=== PATIENT | female | born 1960 | race Caucasian/White ===

== ENCOUNTER 2021-07-15 09:02 | Observation (INO) | payer BC ==
--- NOTE | 2021-06-04 10:47 | RAD REPORT ---
EXAM DESCRIPTION: RAD - Chest Pa And Lat (2 Views) - 06/04/2021 10:31 am CLINICAL HISTORY: Pre op, pending total knee replacement COMPARISON: None TECHNIQUE: Frontal and lateral views of the chest were obtained. FINDINGS: The lungs are clear. Pacemaker/defibrillator is in place. Cardiomegaly is present sternot maco wires in place presumed to be from CABG. Retrosternal soft tissue fullness is probably part of th e cardiomegaly. Upper lobe vasculature within normal limits. Acute failure or volume overload is not suspected. No pleural effusion or pneumothorax seen. No acute bony finding noted. No aortic abnorma lity. IMPRESSION: No acute lung parenchymal process. Cardiomegaly without acute failure or volume overload findings.
[2021-06-04 11:30] LABS: Absolute Lymphocytes (CBC) 2.3 K/uL (0.7-4.9); Hematocrit 43.3 % (36.0-45.0); Lymphocytes % 40.6 % (15.3-44.8); MPV 8.8 fL (7.6-11.3); RBC Red Blood Cell Count 4.76 M/uL (3.86-4.86)
[2021-06-04 11:33] LABS: Protime INR 2.34
[2021-06-04 12:01] LABS: Potassium 4.1 mmol/L (3.5-5.1)
[~2021-07-15 09:02] MED LIST: TRANEXAMIC ACID 1,000 MG in NA CHLORIDE 0.9% 50 ML IV ONE
[2021-07-15] MEDS ORDERED: CEFAZOLIN SODIUM 1 GM/VIAL ONE ×2 (09:22→12:22)
[2021-07-15] MEDS ORDERED: NA CHLORIDE 0.9% 1,000 ML ONE (09:23)
[2021-07-15 09:38] LABS: Protime INR 0.97
[2021-07-15] MEDS ORDERED: dexAMETHasone 10 MG/ML VIAL ONE ×2 (09:46→10:46)
[2021-07-15] MEDS ORDERED: LIDOCAINE 1% MPF 5 ML VIAL ONE (09:46)
[2021-07-15] MEDS ORDERED: BUPIVACAINE 0.25% PF 10 ML VIAL ONE (09:46)
[2021-07-15] MEDS ORDERED: FENTANYL CITR 100 MCG/2 ML ONE (09:47)
[2021-07-15] MEDS ORDERED: MIDAZOLAM HCL 2 MG/2 ML INJ ONE (09:47)
[2021-07-15] MEDS ORDERED: HYDROMORPHONE HCL 1 MG/ML INJ ONE (10:34)
[2021-07-15] MEDS ORDERED: KETAMINE HCL 500 MG/5 ML VIAL ONE (10:45)
[2021-07-15] MEDS ORDERED: propofoL 200 MG/20 ML VIAL IV ONE (10:45)
[2021-07-15] MEDS ORDERED: LIDOCAINE 2% MPF 5 ML VIAL ONE (10:46)
[2021-07-15] MEDS ORDERED: ONDANSETRON 4 MG/2 ML VIAL ONE (10:47)
[2021-07-15] MEDS ORDERED: KETOROLAC 30 MG/ML INJ ONE (10:47)
--- NOTE | 2021-07-15 13:33 | P.BOP ---
Preoperative diagnosis: left knee osteoarthritis Postoperative diagnosis: same Primary procedure: left total knee arthroplasty Acute Care Assistant: NONE,NONE Estimated blood loss: 30 cc Specimen: left knee bone remnants Findings: see dictation Anesthesia: General Complications: None Implants: Biomet Conchita Persona 4 CR femur, C tibia, 26 patella, 12 MC poly Fluids & blood products: per anesthesia record; TT: 73 mins @ 300 mmHg Transferred to: Recovery Room Condition: Good
[2021-07-15] MEDS ORDERED: DOCUSATE NA 100 MG CAP PO PRN (13:35)
[2021-07-15] MEDS ORDERED: MORPHINE 4 MG/ML SYR IV PRN (13:35)
[2021-07-15] MEDS ORDERED: ONDANSETRON 4 MG/2 ML VIAL IV PRN (13:35)
[2021-07-15] MEDS ORDERED: TRAMADOL HCL 50 MG TAB PO PRN (13:43)
[2021-07-15] MEDS ORDERED: ACETAMINOPHEN 500 MG TAB PO PRN (14:06)
[2021-07-15 14:12] LABS: Hematocrit 37.1 % (36.0-45.0)
--- NOTE | 2021-07-15 14:22 | RAD REPORT ---
EXAM DESCRIPTION: RAD - Knee Left 2 View - 07/15/2021 2:16 pm CLINICAL HISTORY: Post Op COMPARISON: No comparisons FINDINGS: A left total knee arthroplasty has been performed. Hardware is in expected location. No ab normal or unexpected bone, implant or soft tissue finding. Skin otis are noted. IMPRESSION: Postoperative left knee with no unexpected finding.
[2021-07-15 14:57] VITALS: BMI 34.0
[2021-07-15] MEDS ORDERED: PNEUMOCOCCAL VACCINE 0.5 ML IMVAC ONE (16:00)
[2021-07-15] MEDS: CEFAZOLIN 1 GM in NA CHLORIDE 0.9% 50 ML IVPB SCH (16:12)
[2021-07-15] MEDS: HYDROCODONE/APAP 7.5/325 MG TAB PO PRN (18:42)
--- NOTE | 2021-07-15 18:43 | P.CNS ---
Date of Consult: 07/15/21 Reason for Consult: Assistance with medical management Requesting Physician: Benoit Adame Chief Complaint: Status post left total knee arthroplasty History of Present Illness: Patient is a 61-year-old female came to the hospital for a left total knee arthroplasty. Patient has a history of coronary artery disease as well as DVTs. She has been on Lovenox and Coumadin. This has been discontinued for the surgery. Orthopedics is okay with restarting this. We will go ahead and continue with Coumadin but overlap with Lovenox until patient's INR gets therapeutic. Patient also with a history of diabetes. Resume home medications. Otherwise, patient doing well with no complaints. She will be admitted for observation. Allergies No Known Allergies Allergy (Verified 07/10/21 14:56) Home Medications: Acetaminophen [Tylenol Arthritis] 650 mg PO BEDTIME 06/04/21 Bempedoic Acid/Ezetimibe [Nexlizet 180-10 mg Tablet] 1 each PO BEDTIME 06/04/21 Carvedilol [Coreg] 3.125 mg PO BID 06/04/21 Metformin HCl 4 tab PO BEDTIME 06/04/21 Sacubitril/Valsartan [Entresto 24 mg-26 mg Tablet] 1 tab PO BID 06/04/21 Spironolactone [Aldactone] 12.5 mg PO DAILY 06/04/21 Vit C/E/Zn/Coppr/Lutein/Zeaxan [Preservision Areds 2 Softgel] 3 each PO DAILY 06/04/21 Warfarin Sodium [Coumadin] 5 mg PO DAILY 5 PM 06/04/21 - Past Medical/Surgical History Diabetic: Yes -: High Cholesterol -: Congenital HEart Defect -: Blood clots -: NIDDM -: CAD -: GA -: heart surgery age 8 months -: heart surgery age 12 years -: heart surgery age 19 years -: tubal ligation -: right knee meniscectomy -: February 28, 2018 pacemaker/defibrillator - Family History Mother Medical History: Diabetes, Other (see notes) Notes: macular degeneration, bilateral leg amputation Father Medical History: Other (see notes) Notes: PTSD - Social History Smoking Status: Former smoker Alcohol use: Yes CD- Drugs: No Caffeine use: Yes Place of Residence: Home Review of Systems 10-point ROS is otherwise unremarkable Physical Examination Temp Pulse Resp BP Pulse Ox 97.1 F 93 H 18 100/58 L 93 07/15/21 16:00 07/15/21 16:00 07/15/21 16:00 07/15/21 16:00 07/15/21 16:00 General: Alert, In no apparent distress HEENT: Atraumatic, PERRLA, Mucous membr. moist/pink, EOMI, Sclerae nonicteric Neck: Supple, 2+ carotid pulse no bruit, No LAD, Without JVD or thyroid abnormality Respiratory: Clear to auscultation bilaterally, Normal air movement Cardiovascular: Regular rate/rhythm, Normal S1 S2 Gastrointestinal: Normal bowel sounds, No tenderness Musculoskeletal: No tenderness Integumentary: No rashes Neurological: Normal gait, Normal speech, Normal tone, Normal affect Lymphatics: No axilla or inguinal lymphadenopathy Laboratory Data (last 24 hrs) 07/15/21 13:56: Hgb 12.4, Hct 37.1 07/15/21 09:16: PT 11.1, INR 0.97, APTT 32.5 - Problems (1) Status post total left knee replacement Current Visit: Yes Status: Acute (2) History of DVT (deep vein thrombosis) Current Visit: Yes Status: Acute (3) History of diabetes mellitus, type II Current Visit: Yes Status: Acute Conclusions/ Impression: Dominguez plan: 1. Monitor closely during the perioperative. 2. Continue with Coumadin and overlap with Lovenox 3. Monitor blood sugars before meals at bedtime 4. Mild sliding scale insulin 5. Monitor hemodynamics closely 6. Repeat labs and check INR in the morning 7. GI DVT prophylaxis Critical Care: No Time Spent Managing Pts care (In Minutes): 35
[2021-07-15] MEDS ORDERED: D50W 25 GM/50 ML SYRINGE IV PRN (20:28)
[2021-07-15] MEDS ORDERED: GLUCAGON 1 MG/VIAL IM PRN (20:28)
--- NOTE | 2021-07-15 20:42 | P.OP ---
Preoperative diagnosis: left knee osteoarthritis Postoperative diagnosis: same Primary procedure: left total knee arthroplasty Anesthesia: general Estimated blood loss: 30 cc Specimen: left knee bone remnants Findings: see dictation Operative Technique: Indication For Procedure: Lauren is a 61 year-old female presenting to my clinic with signs, symptoms and x-ray findings consistent with severe left knee osteoarthritis. I discussed with the patient at length risks and benefits associated with operative and nonoperative treatment. She had failed conservative treatment measures and had significant difficulties with ADLs secondary to her pain. We discussed operative treatment and elected to proceed with left total knee arthroplasty. She expressed understanding and elected to proceed with operative treatment. Description Of Procedure: After informed consent was obtained, the patient was identified in the preoperative holding area. The left lower extremity was marked. The patient was then taken to the PACU where he underwent a leftt lower extremity adductor canal block performed by Anesthesia. She was then taken to the operating room, transferred to the operating table in supine fashion, and placed under general anesthesia. The left lower extremity was then prepped and draped in usual sterile fashion. A time-out was initiated. The correct patient and procedure were confirmed and identified. The patient did receive her preoperative prophylactic antibiotics. The left lower extremity was then exsanguinated and tourniquet was inflated to 300 mmHg. Approximately 15 cm longitudinal incision was made centered over the anterior aspect of the left knee. Dissection was then taken to the extensor mechanism and a medial parapatellar arthrotomy was performed. The patella was everted and dislocated laterally and the knee was flexed in the fat pad. Medial lateral meniscus and ACL were all excised exposing the distal femur. Excess hypertrophic synovium was also excised within the suprapatellar pouch. The patient had a CT of her left knee preoperatively for surgical planning and creation of cutting blocks. The cutting block was then placed over the distal femur and pins were then placed. The distal femoral cutting block was then placed over the pins. Knee joint was then used to ensure proper depth cut and the distal femur was then cut. The chamfer cutting guide was then placed over the distal end of the femur. Anterior, posterior cuts as well as anterior and posterior chamfer cuts were then made again confirming proper depth of the cut using an Jp wing. Excess bone remnants were then sent to pathology for further evaluation. Next, attention was taken to the proximal tibia. A tibial jig and tibial cutting block was then placed on proximal aspect of the left tibia and locked into position. Pins were then placed and alignment guide was then used to confirm proper alignment of the cut and then coronal and sagittal planes. Once this was confirmed, the cutting jig was placed over the pins and the proximal tibia was cut. Sizing trays were then selected and size 10 mm spacer was used and there was good overall balance in flexion and extension. Next, the trial implants were then placed using the size 4 standard CR femur and a size C tibia with an 10 mm CR poly. There was overall good range of motion and with some mild laxity in flexion and extension. A size 12 MC poly was then trialed and there was improved motion and stability. The trial implants were then removed. This improved the overall stability of the knee and components. The wound was then irrigated thoroughly with normal saline and the knee was then injected with 30 cc of 0.5% Marcaine both in the posterior capsule and mediallateral gutters as well as quadriceps tendon and periosteum. The tibia was then punched. The femur was drilled. The cement was then prepared on the back table. Cement was then placed first on the tibial surface followed by size C tibia. Excess cement was removed with Barrow elevators. Size 4 standard CR femur was then placed on the distal femur after cement was placed on the distal femur. Excess cement was then removed and a size 12 mm MC trial poly was then placed. The knee was held in extension as the cement hardened. Undersurface of the patella was prepared debriding osteophytes using rongeurs as well as osteophytes.. Cement was placed on the undersurface of the patella after it was cut and a size 26 patella was placed. Once the cement was hardened, the knee was ranged, there was good overall stability both in flexion, extension and as well as stability with varus and valgus stresses. Trial poly was then removed and a size 12 mm MC poly was then placed and locked into position. The knee was then ranged again. There was good overall range of motion both for flexion and extension with good stability. The wound was then irrigated again thoroughly with normal saline using pulse lavage. Tourniquet was let down. Hemostasis was achieved using Bovie electrocautery. Extensor mechanism was then approximated using a #1 Vicryl both in interrupted and running fashion. The fascia was then approximated using 0 Vicryl. Subcutaneous tissue was approximated with a 2-0 Vicryl. Skin was approximated using otis. Sterile dressings were applied. The patient was awakened and transferred back in stable condition Complications: None Implants: Biomet Conchita Persona 4 femur, C tibia, 26 patella, 12 MC poly Fluids & blood products: per anesthesia record; TT: 73 mins @ 300 mHg Transferred to: Recovery Room Condition: Good
[2021-07-15] MEDS ORDERED: BEMPEDOIC ACID PO SCH (21:00)
[2021-07-15] MEDS ORDERED: EZETIMIBE PO SCH (21:00)
[2021-07-15] MEDS ORDERED: METFORMIN HCL 500 MG TAB PO SCH (21:00)
[2021-07-15] MEDS: carvediloL 3.125 MG TAB PO SCH (21:41)
[2021-07-15] MEDS: SACUBITRIL/VALSARTAN 24/26 MG TAB PO SCH (21:41)
[2021-07-15] MEDS: ENOXAPARIN 80 MG/0.8 ML SQ SCH (21:42)
[2021-07-15] MEDS: INSULIN -REGULAR HUMAN 50 UNIT/0.5 ML ML SQ SCH (21:42)
[2021-07-16] MEDS: CEFAZOLIN 1 GM in NA CHLORIDE 0.9% 50 ML IVPB SCH ×2 (01:09→08:25)
[2021-07-16] MEDS: HYDROCODONE/APAP 7.5/325 MG TAB PO PRN ×2 (01:52→12:24)
[2021-07-16 06:10] LABS: Absolute Lymphocytes (CBC) 0.9 K/uL (0.7-4.9); Hematocrit 34.5 % (36.0-45.0); Lymphocytes % 5.1 % (15.3-44.8); MPV 8.8 fL (7.6-11.3); RBC Red Blood Cell Count 3.89 M/uL (3.86-4.86)
[2021-07-16 06:20] LABS: Protime INR 1.1
[2021-07-16 06:30] LABS: Albumin 3.1 g/dL (3.4-5.0); Bilirubin Total 0.5 mg/dL (0.2-1.0); Magnesium 2.1 mg/dL (1.8-2.4); Potassium 4.4 mmol/L (3.5-5.1); Protein, Total 6.3 g/dL (6.4-8.2)
[2021-07-16 07:12] LABS: Blood Morphology Comment NOT SEEN (NOT SEEN); Platelet Estimate ADEQ
[2021-07-16] MEDS: INSULIN -REGULAR HUMAN 50 UNIT/0.5 ML ML SQ SCH ×2 (07:30→12:27)
[2021-07-16 08:08] VITALS: TEMP 97.6
[2021-07-16] MEDS: SACUBITRIL/VALSARTAN 24/26 MG TAB PO SCH (08:27)
[2021-07-16] MEDS: carvediloL 3.125 MG TAB PO SCH (08:28)
[2021-07-16] MEDS: ENOXAPARIN 80 MG/0.8 ML SQ SCH (08:28)
[2021-07-16] MEDS ORDERED: SPIRONOLACTONE 25 MG TABLET PO SCH (09:00)
[2021-07-16] MEDS ORDERED: HOME MED 1 EA UNK (Vit C/E/Zn/Coppr/Lutein/Zeaxan [Preservision Areds 2 Softgel] Capsule) PO SCH (09:00)
[2021-07-16] MEDS ORDERED: CELECOXIB 100 MG CAPSULE PO SCH (09:00)
[2021-07-16 11:17] VITALS: O2SAT 96
[2021-07-16 11:55] VITALS: BP 113/59
--- NOTE | 2021-07-16 13:06 | P.DS ---
Admission Date: 07/15/21 Discharge Date: 07/16/21 Disposition: DC HOME/HOME HEALTH CARE Discharge Condition: GOOD Reason for Admission: Status post left total knee arthroplasty Consultations: Dr. Portillo, Hospitalist Medicine Procedures: left total knee arthroplasty 07/15/2021 Brief History of Present Illness: Lauren is a 61-year-old female who underwent left total knee arthroplasty on July 15, 2021 without complication. Hospital Course: Lauren underwent left total knee arthroplasty on July 15 without complication. She was admitted to the floor in stable condition. Dr. Lopez was consulted to aid with medical management. She was started on therapeutic Lovenox secondary to her history of DVTs and prior cardiac history per recommendation of her c ardiologist. Physical therapy was consulted the patient mobilized safely. She was discharged on July 16 in stable condition with her vital signs stable. She will follow-up in 2 weeks for wound check and staple removal. She will resume anticoagulants per cardiology recommendations. Vital Signs/Physical Exam: Temp Pulse Resp BP Pulse Ox 97.6 F 88 17 113/59 L 95 07/16/21 11:54 07/16/21 11:54 07/16/21 12:24 07/16/21 11:54 07/16/21 11:54 Laboratory Data at Discharge: WBC 17.20 K/uL (4.3-10.9) H 07/16/21 05:28 Hgb 11.8 g/dL (12.0-15.0) L 07/16/21 05:28 Hct 34.5 % (36.0-45.0) L 07/16/21 05:28 Plt Count 285 K/uL (152-406) 07/16/21 05:28 PT 12.1 SECONDS (9.5-12.5) 07/16/21 05:28 INR 1.10 07/16/21 05:28 APTT 31.8 SECONDS (24.3-36.9) 07/16/21 05:28 Sodium 138 mmol/L (136-145) 07/16/21 05:28 Potassium 4.4 mmol/L (3.5-5.1) 07/16/21 05:28 BUN 13 mg/dL (7-18) 07/16/21 05:28 Creatinine 0.80 mg/dL (0.55-1.3) 07/16/21 05:28 Glucose 182 mg/dL (74-106) H 07/16/21 05:28 Magnesium 2.1 mg/dL (1.8-2.4) 07/16/21 05:28 Total Bilirubin 0.5 mg/dL (0.2-1.0) 07/16/21 05:28 AST 25 U/L (15-37) 07/16/21 05:28 ALT 35 U/L (12-78) 07/16/21 05:28 Alkaline Phosphatase 39 U/L (45-117) L 07/16/21 05:28 Home Medications: Acetaminophen [Tylenol Arthritis] 650 mg PO BEDTIME 06/04/21 Bempedoic Acid/Ezetimibe [Nexlizet 180-10 mg Tablet] 1 each PO BEDTIME 06/04/21 Carvedilol [Coreg] 3.125 mg PO BID 06/04/21 Metformin HCl 4 tab PO BEDTIME 06/04/21 Sacubitril/Valsartan [Entresto 24 mg-26 mg Tablet] 1 tab PO BID 06/04/21 Spironolactone [Aldactone*] 12.5 mg PO DAILY 06/04/21 Vit C/E/Zn/Coppr/Lutein/Zeaxan [Preservision Areds 2 Softgel] 3 each PO DAILY 06/04/21 Warfarin Sodium [Coumadin*] 5 mg PO DAILY 5 PM 06/04/21 Docusate [Colace Cap*] 200 mg PO DAILY PRN #30 cap 07/16/21 Enoxaparin Sodium [Lovenox 80 MG INJ*] 80 mg SQ Q12HR syr 07/16/21 Hydrocodone 7.5/APAP 325 [[place] 7.5/325 mg*] 1 tab PO Q6HP PRN #30 tab 07/16/21 New Medications: Hydrocodone 7.5/APAP 325 [[place] 7.5/325 mg*] 1 tab PO Q6HP PRN #30 tab PRN Reason: Pain Scale 5-7 (Moderate) Docusate [Colace Cap*] 200 mg PO DAILY PRN #30 cap PRN Reason: Constipation Physician Discharge Instructions: -DC IV and DC home -Follow-up with PCP in 1 to 2 weeks -Follow-up with Orthopedics in 1 to 2 weeks -Follow-up with Cardiology, Dr. Judge in [place], Tuesday07/20/2020 -Please call Dr. Portillo at [phone] if any questions regarding hospital stay -Please call nursing station at [phone] if any nursing or medication questions -Return to the emergency room if symptoms worsen Diet: AHA Activity: Fall precautions Followup: Benoit Adame MD [ACTIVE - CAN ADMIT] - 1-2 Weeks (Call to schedule appointment)
[2021-07-16] MEDS ORDERED: WARFARIN SODIUM 5 MG TAB PO SCH (17:00)
== END 2021-07-16 14:05 | disposition home health service (06) ==
LOC: OR 09:02 → 2ND 13:51
PROVIDERS: ADMIT Orthopaedic Surgery Sports Medicine; ATTEND Orthopaedic Surgery Sports Medicine
PROC: 0SRD069 Replacement of Left Knee Joint with Oxidized Zirconium on Polyethylene Synthetic Substitute, Cemented, Open Approach (ICD-10-PCS; principal; 2021-07-15 11:15)
DX: M17.12 Unilateral primary osteoarthritis, left knee (principal); E11.9 Type 2 diabetes mellitus without complications; I25.10 Atherosclerotic heart disease of native coronary artery without angina pectoris; E78.00 Pure hypercholesterolemia, unspecified; E78.5 Hyperlipidemia, unspecified; I25.2 Old myocardial infarction; Q24.9 Congenital malformation of heart, unspecified; F17.210 Nicotine dependence, cigarettes, uncomplicated; Z95.810 Presence of automatic (implantable) cardiac defibrillator; Z86.718 Personal history of other venous thrombosis and embolism; Z79.01 Long term (current) use of anticoagulants; Z79.899 Other long term (current) drug therapy; Z20.822 Contact with and (suspected) exposure to COVID-19; Z83.3 Family history of diabetes mellitus
CPT/HCPCS: 93005; 85025 ×2; 80048; 36415 ×3; 83735; 85610 ×3; 82947 ×6; 88304; 88311; 85730 ×3; 85018; 85014; 80053; 71046; 73560; 97110 ×2; 97116 ×2; 97139; 97161; 97530; 94010; 27447; U0002 ×2; J2704; J2250; J3010; J1100 ×2; J1170; J7030; J2405; J0690 ×5; G0379; G0378 ×2; 88305

== ENCOUNTER 2021-07-25 13:32 | Inpatient (IN) | payer BC ==
[2021-07-25] MEDS ORDERED: ONDANSETRON 4 MG/2 ML VIAL ONE (14:19)
[2021-07-25] MEDS ORDERED: NA CHLORIDE 0.9% 1,000 ML ONE (14:19)
[2021-07-25] MEDS ORDERED: FAMOTIDINE 20 MG/2 ML VIAL IV ONE (14:19)
[2021-07-25 14:38] LABS: Absolute Lymphocytes (CBC) 2.3 K/uL (0.7-4.9); Hematocrit 30.5 % (36.0-45.0); Lymphocytes % 17.7 % (15.3-44.8); MPV 9.3 fL (7.6-11.3); RBC Red Blood Cell Count 3.36 M/uL (3.86-4.86)
--- NOTE | 2021-07-25 14:38 | RAD REPORT ---
EXAM DESCRIPTION: RAD - Chest Single View - 07/25/2021 2:16 pm CLINICAL HISTORY: CHEST PAIN COMPARISON: Chest Pa And Lat (2 Views) dated 06/04/2021 FINDINGS: Lines: None. Lungs: No evidence of edema or pneumonia. Pleural: No significant pleural effusions or pneumothorax. Cardiac: Cardiomegaly. Sternotomy. Pacemaker. Bones: No acute fractures. Other: IMPRESSION: No acute cardiopulmonary disease.
[2021-07-25 14:51] LABS: Albumin 3.2 g/dL (3.4-5.0); Bilirubin Total 0.8 mg/dL (0.2-1.0); Potassium 4.2 mmol/L (3.5-5.1); Protein, Total 6.9 g/dL (6.4-8.2)
--- NOTE | 2021-07-25 15:04 | RAD REPORT ---
EXAM DESCRIPTION: CTAbdomen Pelvis W Contrast - 07/25/2021 2:44 pm CLINICAL HISTORY: ABD PAIN COMPARISON: No comparisons TECHNIQUE: CT of the abdomen and pelvis was performed with contrast. All CT scans are performed using dose optimization technique as appropriate and may include automated exposure control or mA/KV adjustment according to patient size. FINDINGS: Lower chest: Pacemaker. Cardiomegaly. Liver: No acute abnormality or suspicious lesions. Biliary: Contracted gallbladder with pericholecystic edema. Stomach: No significant focal abnormality. Duodenum: No significant focal abnormality. Pancreas: No significant abnormality. Spleen: No significant abnormality. Adrenal: 17 mm indeterminate left adrenal nodule. Kidney/ureter: No hydronephrosis. No renal calculi. Right renal cyst. Renal scarring. Retroperitoneum: No retroperitoneal adenopathy. Vascular: No aneurysm. Bowel: Normal appendix.. No bowel obstruction. Peritoneum: No ascites or free air. Small fat containing umbilical hernia . Bladder: Grossly unremarkable. Reproductive: 6.1 cm mid uterine mass. Bones: No acute fracture. Sternotomy. Other: n/a IMPRESSION: The gallbladder is contracted however there is significant pericholecystic inflammatory changes. Acute cholecystitis is within the differential. Underlying liver disease and/or pathology at the duodenum or pancreatic head can occasionally cause reactive inflammatory changes surround the ga llbladder. Left adrenal nodule measuring 17 millimeters which is indeterminate. Recommend nonemergent adrenal pr otocol CT or MRI in 6 months for further assessment. In the absence of known malignancy, these are al most certainly benign. Uterine mass, possibly a large fibroid. Correlate with patient's history. Nonemergent pelvic ultrasou nd could further evaluate if there is no known history of uterine fibroids.
[2021-07-25 16:16] LABS: Urine Blood Negative (Negative); Urine Glucose Negative (Negative); Urine Protein Negative (Negative); Urine Specific Gravity 1.015 (1.005-1.030); Urine pH 5.5 (5.0-7.0)
[2021-07-25] MEDS ORDERED: D5 0.45 NS 1,000 ML IV ONE (16:18)
[2021-07-25] MEDS ORDERED: PIPERACIL/TAZO 3.375 GM VIAL IV ONE (16:18)
[2021-07-25] MEDS ORDERED: NA CHLORIDE 0.9% 100 ML IV ONE (16:18)
--- NOTE | 2021-07-25 16:38 | ER ---
Nurse's Notes [facility] Name: Lauren Gregory Age: 61 yrs Sex: Female : 1960 Arrival Date: 07/25/2021 Time: 13:38 Bed 7 Private MD: Diagnosis: Acute cholecystitis Presentation: 07/25 13:42 Chief complaint: Patient states: Epigastric pain and low BP started today. Slight SOB. ll1 Denies cough/fever. Home VS: 86/49, HR 43. Knee replacement LLE 07/15/21. Coronavirus screen: Vaccine status: Patient reports receiving the 2nd dose of the covid vaccine. Client denies travel out of the [place] in the last 14 days. difficulty breathing, fatigue, shortness of breath, Client presents with at least one sign or symptom that may indicate coronavirus-19. Standard/surgical mask placed on the client. Ebola Screen: Patient denies travel to an Ebola-affected area in the 21 days before illness onset. Initial Sepsis Screen: Does the patient meet any 2 criteria? RR > 20 per min. No. Patient's initial sepsis screen is negative. Does the patient have a suspected source of infection?. Risk Assessment: Do you want to hurt yourself or someone else? Patient reports no desire to harm self or others. Onset of symptoms was July 25, 2021. 13:42 Method Of Arrival: Wheelchair ll1 13:42 Acuity: WARREN 2 ll1 Triage Assessment: 13:46 General: Appears ill, Behavior is cooperative, appropriate for age. Pain: Complains of ll1 pain in epigastric Quality of pain is described as aching. Neuro: No deficits noted. Cardiovascular: Reports chest pain, shortness of breath. Respiratory: Reports shortness of breath. GI: Reports upper abdominal pain. Historical: - Allergies: 13:40 No Known Allergies; ll1 - Home Meds: 14:11 hydrocodone-acetaminophen 7.5-325 mg Oral tab 1 tab every 6 hours [Active]; warfarin 5 ld1 mg Oral tab 1 tab once daily [Active]; Entresto 24-26 mg oral tab 1 tab 2 times per day [Active]; carvedilol 3.125 mg oral tab 1 tab 2 times per day [Active]; metformin 500 mg Oral tab 1 tab 2 times per day [Active]; spironolactone 25 mg Oral tab 1 tab once daily [Active]; Nexlizet 180-10 mg oral tab 1 tab once daily [Active]; - PMHx: 13:40 Diabetes mellitus; GERD; Hypertensive disorder; Myocardial infarction; ll1 - PSHx: 13:40 knee replacement; 3 open heart surgeries; pacemaker/defib; ll1 - Immunization history:: Client reports receiving the 2nd dose of the Covid vaccine. - Social history:: Smoking status: Patient/guardian denies using tobacco, the patient reports quitting approximately 3.5 years ago, Patient/guardian denies using alcohol, street drugs, The patient lives with family. - Family history:: not pertinent. Screenin:09 Abuse screen: Denies threats or abuse. Denies injuries from another. Nutritional ld1 screening: No deficits noted. Tuberculosis screening: No symptoms or risk factors identified. Fall Risk None identified. Assessment: 14:09 General: Appears in no apparent distress. comfortable, Behavior is calm, cooperative, ld1 appropriate for age. Pain: Complains of pain in epigastric area Pain does not radiate. Pain currently is 6 out of 10 on a pain scale. Quality of pain is described as pressure, Pain began 1 day ago. Is intermittent. Neuro: Level of Consciousness is awake, alert, obeys commands, Oriented to person, place, time, situation, Appropriate for age. Cardiovascular: Capillary refill < 3 seconds Patient's skin is warm and dry. Rhythm is sinus bradycardia. Respiratory: Airway is patent Respiratory effort is even, unlabored, Respiratory pattern is regular, symmetrical. GI: Abdomen is round non-distended, Reports upper abdominal pain. : No signs and/or symptoms were reported regarding the genitourinary system. EENT: No signs and/or symptoms were reported regarding the EENT system. Derm: No signs and/or symptoms reported regarding the dermatologic system. Musculoskeletal: No signs and/or symptoms reported regarding the musculoskeletal system. 15:27 Reassessment: Patient and/or family updated on plan of care and expected duration. Pain ld1 level reassessed. Patient is alert, oriented x 3, equal unlabored respirations, skin warm/dry/pink. 18:10 Reassessment: Patient appears in no apparent distress at this time. No changes from ld1 previously documented assessment. Patient and/or family updated on plan of care and expected duration. Pain level reassessed. Patient is alert, oriented x 3, equal unlabored respirations, skin warm/dry/pink. 19:57 Reassessment: Patient appears in no apparent distress at this time. No changes from ll3 previously documented assessment. Patient and/or family updated on plan of care and expected duration. Pain level reassessed. Patient is alert, oriented x 3, equal unlabored respirations, skin warm/dry/pink. Vital Signs: 13:42 BP 113 / 35; Pulse 40; Resp 24; Temp 97.4; Pulse Ox 100% on R/A; Weight 78.93 kg; ll1 Height 5 ft. 0 in. (152.40 cm); 14:09 BP 96 / 44; Pulse 40; Resp 21; Pulse Ox 97% on R/A; Pain 6/10; ld1 15:27 BP 98 / 54; Pulse 41; Resp 18; Pulse Ox 93% on R/A; ld1 16:53 BP 106 / 56; Pulse 40; Resp 18; Pulse Ox 98% on R/A; ld1 18:10 BP 102 / 75; Pulse 40; Resp 18; Pulse Ox 99% on R/A; ld1 19:56 BP 109 / 43; Pulse 40; Resp 16; Pulse Ox 97% on R/A; ll3 13:42 Body Mass Index 33.98 (78.93 kg, 152.40 cm) ll1 ED Course: 13:38 Patient arrived in ED. ll1 13:39 Arm band placed on Patient placed in an exam room, on a stretcher. ll1 13:46 Triage completed. ll1 13:53 EKG done, by ED staff. em1 13:55 Missed attempt(s): 20 gauge in right antecubital area. Bleeding controlled, band aid ll1 applied, catheter tip intact. 14:00 Inserted saline lock: 22 gauge in right forearm, using aseptic technique. Blood ll1 collected. 14:06 Ryan Morales MD is Attending Physician. ma2 14:09 Kristen Dorsey, URI is Primary Nurse. ld1 14:09 Patient has correct armband on for positive identification. Placed in gown. Bed in low ld1 position. Call light in reach. Side rails up X2. sawsmith on. Pulse ox on. NIBP on. Door closed. Noise minimized. Warm blanket given. 14:09 No provider procedures requiring assistance completed. ld1 14:16 XRAY Chest (1 view) In Process Unspecified. EDMS 14:44 CT Abd/Pelvis - IV Contrast Only In Process Unspecified. EDMS 16:38 Prince Light MD is Hospitalizing Provider. ma2 16:48 US Abdomen Limited In Process Unspecified. EDMS Administered Medications: 14:20 Drug: NS 0.9% 1000 ml Route: IV; Rate: 1 bolus; Site: right antecubital; ld1 14:20 Drug: Pepcid (famotidine) 20 mg Route: IVP; Site: right forearm; ld1 16:27 Follow up: Response: No adverse reaction ponce 14:21 Drug: Zofran (Ondansetron) 4 mg Route: IVP; Site: right forearm; ld1 16:27 Follow up: Response: No adverse reaction ponce 16:50 Drug: Zosyn (piperacillin-tazobactam) 3.375 grams Route: IVPB; Infused Over: 60 mins; ld1 Site: right forearm; 16:50 Drug: D5-1/2 NS 1000 ml Route: IV; Rate: 125 ml/hr; Site: right forearm; ld1 Outcome: 16:38 Decision to Hospitalize by Provider. ma2 21:13 Admitted to Tele room 406, with chart, Report called to URI Buckley lp1 21:13 Condition: stable 21:13 Instructed on the need for admit. 21:34 Patient left the ED. lp1 Signatures: Dispatcher [employer] EDMS Irwin Paris em1 Shea Liu, RN RN lp1 Ryan Morales MD MD ma2 Renée Frausto RN RN 1 Kristen Dorsey RN RN ld1 Gaby Vickers RN RN 3 Yumiko Slade RN RN ponce Corrections: (The following items were deleted from the chart) 13:42 13:40 PMHx: heart attack; ll1 ll1 13:47 13:42 Initial Sepsis Screen: Does the patient meet any 2 criteria? No. Patient's ll1 initial sepsis screen is negative. Does the patient have a suspected source of infection? Yes: Acute abdominal pain ll1 13:51 13:42 Chief complaint: Patient states: Epigastric pain and low BP started today. Slight ll1 SOB. Denies cough/fever. Home VS: 86/49, HR 43. ll1
--- NOTE | 2021-07-25 16:38 | EDPHYS ---
Physician Documentation [facility] Name: Lauren Gregory Age: 61 yrs Sex: Female : 1960 Arrival Date: 07/25/2021 Time: 13:38 Bed 7 Private MD: ED Physician Ryan Morales HPI: 07/25 14:33 This 61 yrs old Female presents to ER via Wheelchair with complaints of Epigastric Pain.ma2 14:33 The patient presents with abdominal pain. Associated signs and symptoms: Pertinent ma2 negatives: anorexia, chest pain, constipation, diarrhea, fever, hematuria, shortness of breath, vaginal discharge, vomiting. Severity of pain: At its worst the pain was mild in the emergency department the pain is unchanged. The patient has not experienced similar symptoms in the past. Historical: - Allergies: 13:40 No Known Allergies; ll1 - Home Meds: 14:11 hydrocodone-acetaminophen 7.5-325 mg Oral tab 1 tab every 6 hours [Active]; warfarin 5 ld1 mg Oral tab 1 tab once daily [Active]; Entresto 24-26 mg oral tab 1 tab 2 times per day [Active]; carvedilol 3.125 mg oral tab 1 tab 2 times per day [Active]; metformin 500 mg Oral tab 1 tab 2 times per day [Active]; spironolactone 25 mg Oral tab 1 tab once daily [Active]; Nexlizet 180-10 mg oral tab 1 tab once daily [Active]; - PMHx: 13:40 Diabetes mellitus; GERD; Hypertensive disorder; Myocardial infarction; ll1 - PSHx: 13:40 knee replacement; 3 open heart surgeries; pacemaker/defib; ll1 - Immunization history:: Client reports receiving the 2nd dose of the Covid vaccine. - Social history:: Smoking status: Patient/guardian denies using tobacco, the patient reports quitting approximately 3.5 years ago, Patient/guardian denies using alcohol, street drugs, The patient lives with family. - Family history:: not pertinent. ROS: 14:33 Constitutional: Negative for fever, chills, and weight loss. ma2 14:33 All other systems are negative. Exam: 14:33 Constitutional: This is a well developed, well nourished patient who is awake, alert, ma2 and in no acute distress. Head/Face: Normocephalic, atraumatic. Eyes: Pupils equal round and reactive to light, extra-ocular motions intact. Lids and lashes normal. Conjunctiva and sclera are non-icteric and not injected. Cornea within normal limits. Periorbital areas with no swelling, redness, or edema. ENT: Nares patent. No nasal discharge, no septal abnormalities noted. Tympanic membranes are normal and external auditory canals are clear. Oropharynx with no redness, swelling, or masses, exudates, or evidence of obstruction, uvula midline. Mucous membranes moist. Neck: Trachea midline, no thyromegaly or masses palpated, and no cervical lymphadenopathy. Supple, full range of motion without nuchal rigidity, or vertebral point tenderness. No Meningismus. Chest/axilla: Normal chest wall appearance and motion. Nontender with no deformity. No lesions are appreciated. Cardiovascular: Regular rate and rhythm with a normal S1 and S2. No gallops, murmurs, or rubs. Normal PMI, no JVD. No pulse deficits. Respiratory: Lungs have equal breath sounds bilaterally, clear to auscultation and percussion. No rales, rhonchi or wheezes noted. No increased work of breathing, no retractions or nasal flaring. Abdomen/GI: Soft, non-tender, with normal bowel sounds. No distension or tympany. No guarding or rebound. No evidence of tenderness throughout. Back: No spinal tenderness. No costovertebral tenderness. Full range of motion. Skin: Warm, dry with normal turgor. Normal color with no rashes, no lesions, and no evidence of cellulitis. MS/ Extremity: Pulses equal, no cyanosis. Neurovascular intact. Full, normal range of motion. Neuro: Awake and alert, GCS 15, oriented to person, place, time, and situation. Cranial nerves II-XII grossly intact. Motor strength 5/5 in all extremities. Sensory grossly intact. Cerebellar exam normal. Normal gait. Vital Signs: 13:42 BP 113 / 35; Pulse 40; Resp 24; Temp 97.4; Pulse Ox 100% on R/A; Weight 78.93 kg; ll1 Height 5 ft. 0 in. (152.40 cm); 14:09 BP 96 / 44; Pulse 40; Resp 21; Pulse Ox 97% on R/A; Pain 6/10; ld1 15:27 BP 98 / 54; Pulse 41; Resp 18; Pulse Ox 93% on R/A; ld1 16:53 BP 106 / 56; Pulse 40; Resp 18; Pulse Ox 98% on R/A; ld1 18:10 BP 102 / 75; Pulse 40; Resp 18; Pulse Ox 99% on R/A; ld1 19:56 BP 109 / 43; Pulse 40; Resp 16; Pulse Ox 97% on R/A; ll3 13:42 Body Mass Index 33.98 (78.93 kg, 152.40 cm) ll1 MDM: 14:07 Patient medically screened. ma2 16:36 Differential diagnosis: Cholelithiasis, gastritis, gastroesophageal reflux disease, ma2 pancreatitis. Data reviewed: vital signs, nurses notes. Counseling: I had a detailed discussion with the patient and/or guardian regarding: the historical points, exam findings, and any diagnostic results supporting the discharge/admit diagnosis, the presence of at least one elevated blood pressure reading (>120/80) during this emergency department visit, the need for outpatient follow up. Response to treatment: There is no appreciated change of the patient's symptoms at this time. ED course: Ultrasound shows CT scan shows acute cholecystitis, ultrasound is pending. White count 13,000, I discussed this with Dr. Lira. Recommend continue Zosyn n.p.o. midnight. Will admit to hospitalist discussed with Dr. Taveras. 07/25 13:49 Order name: CBC with Diff; Complete Time: 15:43 [facility] 07/25 13:49 Order name: Troponin HS; Complete Time: 15:43 [facility] 07/25 14:08 Order name: CMP; Complete Time: 15:43 [facility] 07/25 14:08 Order name: Lipase; Complete Time: 15:43 [facility] 07/25 16:16 Order name: Urine Dipstick-Ancillary; Complete Time: 16:19 EDMS 07/25 13:49 Order name: XRAY Chest (1 view); Complete Time: 15:43 [facility] 07/25 14:08 Order name: CT Abd/Pelvis - IV Contrast Only; Complete Time: 15:43 tx2 07/25 15:44 Order name: US Abdomen Limited; Complete Time: 17:59 [facility] 07/25 16:53 Order name: Lactate; Complete Time: 17:59 EDMS 07/25 17:08 Order name: SARS-COV-2 RT PCR (Document "Date of Onset" if Symptomatic) eb 07/25 13:49 Order name: EKG; Complete Time: 13:50 [facility] 07/25 13:49 Order name: Cardiac monitoring; Complete Time: 13:53 [facility] 07/25 13:49 Order name: EKG - Nurse/Tech; Complete Time: 13:53 [facility] 07/25 13:49 Order name: IV Saline Lock; Complete Time: 14:14 [facility] 07/25 13:49 Order name: Labs collected and sent; Complete Time: 14:14 [facility] 07/25 13:49 Order name: O2 Per Protocol; Complete Time: 13:53 [facility] 07/25 13:49 Order name: O2 Sat Monitoring; Complete Time: 13:53 [facility] 07/25 14:08 Order name: Urine Dipstick-Ancillary (obtain specimen); Complete Time: 16:16 tx2 07/25 15:58 Order name: NPO; Complete Time: 16:12 ma2 Administered Medications: 14:20 Drug: NS 0.9% 1000 ml Route: IV; Rate: 1 bolus; Site: right antecubital; ld1 14:20 Drug: Pepcid (famotidine) 20 mg Route: IVP; Site: right forearm; ld1 16:27 Follow up: Response: No adverse reaction ponce 14:21 Drug: Zofran (Ondansetron) 4 mg Route: IVP; Site: right forearm; ld1 16:27 Follow up: Response: No adverse reaction ponce 16:50 Drug: Zosyn (piperacillin-tazobactam) 3.375 grams Route: IVPB; Infused Over: 60 mins; ld1 Site: right forearm; 16:50 Drug: D5-1/2 NS 1000 ml Route: IV; Rate: 125 ml/hr; Site: right forearm; ld1 Disposition Summary: 07/25/21 16:38 Hospitalization Ordered Hospitalization Status: Inpatient Admission tx2 Provider: Prince mesha Light Location: Telemetry/MedSurg (Inpatient) ma2 Condition: Stable ma2 Problem: new ma2 Symptoms: are unchanged tx2 Bed/Room Type: Standard [facility] Room Assignment: 406(07/25/21 20:13) cg Diagnosis - Acute cholecystitis ma2 Forms: - Medication Reconciliation Form ma2 - SBAR form ma2 Signatures: Dispatcher [employer] EDMS Abelino Wang, POPCORN VENDOR-C POPCORN VENDOR-Cla1 Mercedes Barrera RN RN Ryan Morales MD MD ma2 Renée Frausto RN RN ll1 Kristen Dorsey RN RN 1 Yumiko Slade RN Corrections: (The following items were deleted from the chart) 13:42 13:40 PMHx: heart attack; ll1 ll1 14:24 13:50 BASIC METABOLIC PANEL+C.LAB.BRZ ordered. EDMS EDMS 20:13 16:38 [facility] [place]
--- NOTE | 2021-07-25 16:54 | P.HP ---
Certification for Inpatient Patient admitted to: Inpatient With expected LOS: >2 Midnights Practitioner: I am a practitioner with admitting privileges, knowledge of patient current condition, hospital course, and medical plan of care. Services: Services provided to patient in accordance with Admission requirements found in Title 42 Section 412.3 of the Code of Federal Regulations Patient History Date of Service: 07/25/21 Reason for admission: chest/epigrastric pain History of Present Illness: Patient is a 61-year-old female with a past medical history of hypertension, congestive heart failure, type 2 diabetes mellitus and chronic bradycardia. She currently has AICD in place. She also has a history of ventricular thrombus for which chronically anticoagulated with warfarin. She presented to the ER complaining of post malaise. Her symptoms started 3 days ago after patient started feeling clammy. Her heart rate was 38 at the time. The patient postpone her presentation until today. She developed a sudden onset of upper epigastric/subxiphoid pain. It is nonradiating. She recently had a left total knee arthroplasty on 07/22. Her warfarin was switched to Lovenox perioperatively. It is unclear whether she remain compliant on this. is unsure about this. She arrived in the ER bradycardic with heart rate in the mid 40s. She had a CT abdomen and pelvis which was suggestive of cholecystitis. WBC was 13. Surgery was consulted by ER for cholecystectomy. Lactic acid ordered. I have also ordered a pacemaker interrogation. She is mildly hypotensive with SBP in the low 100s. She received 2 L of IV fluids and 1 dose of zosyn. Allergies No Known Allergies Allergy (Verified 07/10/21 14:56) Home Medications: Acetaminophen [Tylenol Arthritis] 650 mg PO BEDTIME 06/04/21 Bempedoic Acid/Ezetimibe [Nexlizet 180-10 mg Tablet] 1 each PO BEDTIME 06/04/21 Carvedilol [Coreg] 3.125 mg PO BID 06/04/21 Metformin HCl 4 tab PO BEDTIME 06/04/21 Sacubitril/Valsartan [Entresto 24 mg-26 mg Tablet] 1 tab PO BID 06/04/21 Spironolactone [Aldactone*] 12.5 mg PO DAILY 06/04/21 Vit C/E/Zn/Coppr/Lutein/Zeaxan [Preservision Areds 2 Softgel] 3 each PO DAILY 06/04/21 Warfarin Sodium [Coumadin*] 5 mg PO DAILY 5 PM 06/04/21 Docusate [Colace Cap*] 200 mg PO DAILY PRN #30 cap 07/16/21 Enoxaparin Sodium [Lovenox 80 MG INJ*] 80 mg SQ Q12HR syr 07/16/21 Hydrocodone 7.5/APAP 325 [[place] 7.5/325 mg*] 1 tab PO Q6HP PRN #30 tab 07/16/21 - Past Medical/Surgical History Diabetic: Yes -: High Cholesterol -: Congenital HEart Defect -: Blood clots -: NIDDM -: CAD -: [place] -: heart surgery age 8 months -: heart surgery age 12 years -: heart surgery age 19 years -: tubal ligation -: right knee meniscectomy -: February 28, 2018 pacemaker/defibrillator - Family History Mother -: Diabetes, Other (see notes) Notes: macular degeneration, bilateral leg amputation Father -: Other (see notes) Notes: PTSD - Social History Alcohol use: Yes CD- Drugs: No Caffeine use: Yes Physical Examination - Physical Exam General: In no apparent distress, Cooperative, Obese, Other (lethargic) HEENT: Atraumatic, Normocephalic Respiratory: Normal air movement Cardiovascular: Normal S1 S2, Other (bradycardic), Edema Gastrointestinal: Soft and benign, Non-distended, Tenderness (Epigastric tenderness) Musculoskeletal: No clubbing, No swelling, No contractures, Other (s/p L TKA) Neurological: Normal speech, Normal affect - Studies Laboratory Data (last 24 hrs) 07/25/21 14:00: Sodium 137, Potassium 4.2, BUN 22 H, Creatinine 0.98, Glucose 240 H, Total Bilirubin 0.8, AST 23, ALT 34, Alkaline Phosphatase 54, Lipase 73 07/25/21 14:00: WBC 13.10 H D, Hgb 10.3 L, Hct 30.5 L, Plt Count 383 D 07/25/21 14:00: Sodium Cancelled, Potassium Cancelled, BUN Cancelled, Creatinine Cancelled, Glucose Cancelled Assessment and Plan - Problems (Diagnosis) (1) Sepsis Current Visit: Yes Status: Acute (2) Acute cholecystitis Current Visit: Yes Status: Acute (3) History of DVT (deep vein thrombosis) Current Visit: No Status: Acute (4) History of diabetes mellitus, type II Current Visit: No Status: Acute (5) Status post total left knee replacement Current Visit: No Status: Acute (6) Bradycardia Current Visit: Yes Status: Acute - Advance Directives Does patient have a Living Will: No Does patient have a Durable POA for Healthcare: No Physician Review Additional Text: Assessment Patient is a 61 year old female with obesity, type II DM, CHF. She is currently being admitted with sepsis after seh presented with upper epigastric pain. Abdominal imaging is concerning for acute cholecysitis. She is also bradycardic despite having a pacemaker in place. Her first troponin is negative. She received 2L in the ER for hypotension and a dose of Zosyn. Acute cholecystitis Symptomatic bradycardia/hypotension VTE CHF Type II diabetes mellitus PLAN: Admit inpatient with telemetry Continue zosyn and follow blood cx NPO after midnight for cholecystectomy. Surgery consulted by ER Follow up lactic acid Check coag panel Pacemaker interogation for bradycardia. TTE ordered Cardiology consulted Insulin sliding scale DVT/GI ppx
--- NOTE | 2021-07-25 17:12 | RAD REPORT ---
EXAM DESCRIPTION: US - Abdomen Exam Limited - 07/25/2021 4:47 pm CLINICAL HISTORY: ABD PAIN COMPARISON: Abdomen Pelvis W Contrast dated 07/25/2021 FINDINGS: The gallbladder is contracted. Wall is thickened measuring [address] one near the gallbladder neck. The common bile duct is normal in caliber measuring 2 millimeters. Neg ative sonographic Lopez's sign. No pericholecystic fluid. IMPRESSION: No conclusive findings to suggest acute cholecystitis. The sonographic Lopez sign is ne gative. Possible gallstone near the neck but lack of gallbladder dilatation would make calculous chol ecystitis unlikely. The common bile duct is normal in caliber.
[2021-07-25] MEDS ORDERED: SODIUM CHLORIDE 0.9% 10ML INJ IV PRN (21:09)
[2021-07-25] MEDS ORDERED: D50W 25 GM/50 ML SYRINGE IV PRN (21:09)
[2021-07-25] MEDS ORDERED: GLUCAGON 1 MG/VIAL IM PRN (21:09)
[2021-07-25 21:50] LABS: Protime INR 1.13
[2021-07-25] MEDS: D5 0.45 NS 1,000 ML IV SCH (23:00)
--- NOTE | 2021-07-25 23:17 | P.CNS ---
Date of Consult: 07/25/21 PC: This 61-year-old female presented to the emergency room with severe right upper quadrant abdominal pain for diagnosis and treatment. HPC: Patient has been having intermittent bouts of right upper quadrant abdominal pain over the both in occurrence and strength. She recently had left knee surgery. She noticed about 2 days ago that she started having right upper quadrant abdominal pain. It intensified to the point that this evening she could no longer stand and came to the hospital for diagnosis and treatment. PSHx: Recent knee surgery PMHx: Hypertension, had a recent cardiac work-up and stress test prior to her knee surgery 2 weeks ago. Social Hx: No known allergies Sys R: No cough, wheeze, shortness of breath. No chest pain or palpitations. Denies any urinary complaints O/E: Awake alert vital signs are stable HEENT: Nonicteric Chest: Air entry equal bilaterally Abd: Mild right upper quadrant tenderness [place]: Intact Data: CT scan demonstrates pericholecystic stranding, ultrasound shows possible's gallstone Impression: Acute on chronic cholecystitis with cholelithiasis Plan: I will take the patient in the operating room tomorrow. The risks of this procedure have been discussed. I explained to her that we will do a laparoscopic cholecystectomy with a cholangiogram. There is a possibility that she may have to undergo an open procedure. The risks of injury to bile ducts blood vessels and intestines were explained. The fact we are going to do a cholangiogram which may lead to other procedures in the future were outlined. She understands and wants to proceed. We will make her n.p.o. Awaiting medical clearance
[2021-07-25 23:29] VITALS: BMI 34.0
[2021-07-25] MEDS: MIDODRINE HCL 5 MG TABLET PO SCH (23:50)
[2021-07-25] MEDS: PANTOPRAZOLE 40 MG INJ IVP SCH (23:50)
[2021-07-25] MEDS: INSULIN -REGULAR HUMAN 50 UNIT/0.5 ML ML SQ SCH (23:51)
[2021-07-25] MEDS: MORPHINE 2 MG/ML SYR IV PRN (23:59)
[2021-07-26] MEDS: PIPER TAZO 3.375 GM in NA CHLORIDE 0.9% 100 ML IV SCH ×3 (00:55→17:46)
[2021-07-26] MEDS: MORPHINE 2 MG/ML SYR IV PRN ×2 (06:10→23:02)
[2021-07-26] MEDS: INSULIN -REGULAR HUMAN 50 UNIT/0.5 ML ML SQ SCH ×4 (07:30→20:40)
[2021-07-26 08:10] LABS: Absolute Lymphocytes (CBC) 2.8 K/uL (0.7-4.9); Hematocrit 28.3 % (36.0-45.0); Lymphocytes % 27.6 % (15.3-44.8); MPV 9.1 fL (7.6-11.3); RBC Red Blood Cell Count 3.04 M/uL (3.86-4.86)
[2021-07-26] MEDS: MIDODRINE HCL 5 MG TABLET PO SCH ×3 (09:00→20:40)
[2021-07-26] MEDS: PANTOPRAZOLE 40 MG INJ IVP SCH (09:00)
[2021-07-26] MEDS ORDERED: DOCUSATE NA 100 MG CAP PO PRN (10:14)
--- NOTE | 2021-07-26 10:17 | P.PN ---
Subjective Date of Service: 07/26/21 Chief Complaint: chest/epigrastric pain Subjective: Other (NPO for cholecystectomy today.) Physical Examination - Vital Signs Temperature: 97.6 F Blood Pressure: 111/57 Pulse: 40 Respirations: 16 Pulse Ox (%): 94 - Physical Exam General: In no apparent distress, Cooperative, Obese HEENT: Atraumatic, Normocephalic Respiratory: Clear to auscultation bilaterally, Normal air movement Cardiovascular: Regular rate/rhythm, Normal S1 S2, Other (bradycardic) Gastrointestinal: Soft and benign, Non-distended Musculoskeletal: No clubbing, No swelling, No contractures Neurological: Normal speech, Normal affect - Studies Laboratory Data (last 24 hrs) 07/25/21 14:00: Sodium 137, Potassium 4.2, BUN 22 H, Creatinine 0.98, Glucose 240 H, Total Bilirubin 0.8, AST 23, ALT 34, Alkaline Phosphatase 54, Lipase 73 07/25/21 14:00: WBC 13.10 H D, Hgb 10.3 L, Hct 30.5 L, Plt Count 383 D 07/25/21 14:00: Sodium Cancelled, Potassium Cancelled, BUN Cancelled, Creatinine Cancelled, Glucose Cancelled Assessment And Plan - Current Problems (Diagnosis) (1) Sepsis Current Visit: Yes Status: Acute (2) Acute cholecystitis Current Visit: Yes Status: Acute (3) History of DVT (deep vein thrombosis) Current Visit: No Status: Acute (4) History of diabetes mellitus, type II Current Visit: No Status: Acute (5) Status post total left knee replacement Current Visit: No Status: Acute (6) Bradycardia Current Visit: Yes Status: Acute Physician Review Additional Text: Assessment Patient is a 61 year old female with obesity, type II DM, CHF. She is currently being admitted with sepsis after seh presented with upper epigastric pain. Abdominal imaging is concerning for acute cholecysitis. She is also bradycardic despite having a pacemaker in place. Her first troponin is negative. She received 2L in the ER for hypotension and a dose of Zosyn. Acute cholecystitis Symptomatic bradycardia/hypotension VTE CHF Type II diabetes mellitus PLAN: NPO for cholecystectomy. Surgery consulted by ER I discussed her bradycardia with Anesthesia, and cardiology yesterday. She has a AICD/PCM. Cardiac clearance requested before surgery Continue zosyn and follow blood cx Pacemaker interogation for bradycardia. TTE ordered Insulin sliding scale DVT/GI ppx
[2021-07-26] MEDS: D5 0.45 NS 1,000 ML IV SCH (14:27)
[2021-07-26] MEDS: ENOXAPARIN 40 MG/0.4 ML SQ SCH (16:16)
--- NOTE | 2021-07-26 16:36 | P.PN ---
Date of Service: 07/26/21 S: Patient pain is seems to be somewhat better. Upset that she is not having surgery today. O: Vital signs are stable, abdomen is relatively soft A: I had intended taking this patient, who presented with right upper quadrant abdominal pain and biliary colic to the OR today for laparoscopic cholecystectomy with a cholangiogram. On further review with anesthesiologist there was concern about the patient's low heart rate. She apparently did have a cardiac work-up done prior to her knee surgery that was performed about 10 days ago. P: We will cancel surgery for today. A cardiac consult was placed on this patient. We will see whether something needs to be done emergently, or if the patient can be discharged with follow-up with her own clinical research manager for comparison of his previous data and any new changes that may have occurred.
--- NOTE | 2021-07-26 22:12 | CON ---
Date of Consultation: 07/26/2021 Reason For Consultation: Bradycardia and cardiac preop risk assessment. History Of Present Illness: A 61-year-old female with history of hypertension, congestive heart fail ure with ICD in place, diabetes, and history of LV thrombus, on chronic anticoagulation with warfarin . The patient came in with abdominal pain and diagnosed with acute cholecystitis. I was asked to ev aluate for preop evaluation. Apparently, she had a knee replacement recently and she tolerated the s urgery very well. However, as per her , her heart rate used to be in the 70s since the surger y and her heart rate has been in the 40s and is being paced by the ICD. No current shocks. Past Medical History: As outlined above in the HPI. Medications: Refer reconciliation sheet for detailed list. Allergies: NO KNOWN DRUG ALLERGIES. Family History: No premature coronary artery disease or cancer. Social History: Does not smoke or drink. Does not use any drugs. Review of Systems: All systems reviewed and they were negative except for above mentioned in the HPI. Physical Examination: Vital Signs: Reviewed. Head and Neck: Pupils are equal and reactive to light. Intact eye movements. No JVD. No cervical lymphadenopathy. Neck: Supple. Thyroid is not enlarged. Lungs: Clear to auscultation bilaterally. No rhonchi, rales, or crackles. No accessory muscle use. Heart: Regular rate and rhythm. No extra sounds. Abdomen: Soft, tender in the right upper quadrant. No rigidity or rebound. Extremities: No clubbing or cyanosis. Intact pulses. Skin: No rashes or nodules. Neuro: Alert, awake, oriented x3. No acute focal deficits appreciated. Investigations: Hemoglobin 9.4, white blood cell count is 10.2, and creatinine 0.98. Assessment And Recommendations: 1.Cardiac preop evaluation. The patient is a poor historian. She does have low ejection fraction. Hence, she has the ICD in place. She could not tell me whether she has history of coronary artery d isease, but she denies having any exertional chest pain. She said that she had multiple heart caths, but she never had a stent. Last heart cath was in 2017. She tolerated the major surgery with knee replacement recently. If the patient has acute cholecystitis and that makes the surgery rather urgen t, then I will proceed with the surgery and we will monitor. However, if the diagnosis of acute chol ecystitis is inconclusive, recommend further investigation on this matter and in the interim to obtai n an echo and a Lexiscan nuclear stress test. Again, if the patient has acute cholecystitis and need surgery urgently, to proceed with any further cardiac workup at this point. 2.Bradycardia. The patient is being paced by the ICD and she has low ejection fraction. We will ponce ve this ICD device interrogated to know what device she has. If she has only an ICD, then she will r equire a biventricular pacing due to a low ejection fraction. Further plans and recommendations will be made after the device interrogation and obtaining an echo and stress test as recommended above. /KESHIA Voice ID: [id number] Report ID: [id number]
[2021-07-27] MEDS: PIPER TAZO 3.375 GM in NA CHLORIDE 0.9% 100 ML IV SCH ×3 (01:00→16:35)
[2021-07-27] MEDS: D5 0.45 NS 1,000 ML IV SCH ×2 (07:00→17:35)
[2021-07-27] MEDS: INSULIN -REGULAR HUMAN 50 UNIT/0.5 ML ML SQ SCH ×4 (07:30→21:43)
--- NOTE | 2021-07-27 08:23 | EKG ---
Test Date: 2021-07-25 Test Time: 13:47:34 Assembling Motor Builder: VIVEK MEASUREMENT RESULTS: Intervals: Rate: 40 SD: QRSD: 156 QT: 498 QTc: 405 [place]: P: SD: QRS: -76 T: 122 INTERPRETIVE STATEMENTS: paced rhythm Left axis deviation Nonspecific intraventricular block Lateral infarct, age undetermined Inferior infarct, age undetermined Abnormal ECG Compared to ECG 06/04/2021 10:36:02 [facility] Electronically Signed On 07-27-21 08:20:44 CDT by Esvin John
[2021-07-27] MEDS: MIDODRINE HCL 5 MG TABLET PO SCH ×3 (09:49→21:42)
[2021-07-27] MEDS: PANTOPRAZOLE 40 MG INJ IVP SCH (09:52)
[2021-07-27] MEDS ORDERED: NA CHLORIDE 0.9% 1,000 ML ONE (13:12)
[2021-07-27] MEDS ORDERED: FENTANYL CITR 100 MCG/2 ML ONE (13:31)
[2021-07-27] MEDS ORDERED: dexAMETHasone 10 MG/ML VIAL ONE (13:31)
[2021-07-27] MEDS ORDERED: LIDOCAINE 2% MPF 5 ML VIAL ONE (13:31)
[2021-07-27] MEDS ORDERED: propofoL 200 MG/20 ML VIAL IV ONE (13:31)
[2021-07-27] MEDS ORDERED: MIDAZOLAM HCL 2 MG/2 ML INJ ONE (13:32)
[2021-07-27] MEDS ORDERED: ONDANSETRON 4 MG/2 ML VIAL ONE (13:32)
[2021-07-27] MEDS ORDERED: KETOROLAC 30 MG/ML INJ ONE (13:32)
[2021-07-27] MEDS ORDERED: ROCURONIUM 50 MG/5 ML VIAL IV ONE (13:46)
--- NOTE | 2021-07-27 15:03 | P.PN ---
Date of Service: 07/27/21 S: I was told the patient had been cleared from cardiology today. Try to get answers to the operating room. Anesthesia is further clarification and case has now been canceled at this time. O: Patient still complaining of intermittent bouts of right upper quadrant abdominal pain. A: I had seen the patient and she was still having some right upper quadrant tenderness. I was informed at the time that the patient had been cleared from a cardiac point of view. Further clarification however the recovery room led to some discussion between the anesthesiologist and wellhead pumper. Apparently the trend is to delay her surgery as it is not emergent. I have discussed this with the hospitalist, and I met the patient service when she has been cleared for surgery. P: Continue conservative management of her cholecystitis.
[2021-07-27] MEDS: ENOXAPARIN 40 MG/0.4 ML SQ SCH (17:37)
[2021-07-27] MEDS: MORPHINE 2 MG/ML SYR IV PRN (21:58)
[2021-07-28] MEDS: PIPER TAZO 3.375 GM in NA CHLORIDE 0.9% 100 ML IV SCH ×3 (00:39→18:00)
[2021-07-28] MEDS: D5 0.45 NS 1,000 ML IV SCH ×5 (00:43→14:58)
[2021-07-28 06:19] LABS: Hematocrit 27.9 % (36.0-45.0); Lymphocytes % 17.2 % (15.3-44.8); MPV 9.6 fL (7.6-11.3); RBC Red Blood Cell Count 2.95 M/uL (3.86-4.86)
[2021-07-28 06:53] LABS: Albumin 2.7 g/dL (3.4-5.0); Magnesium 1.8 mg/dL (1.8-2.4); Potassium 3.6 mmol/L (3.5-5.1); Protein, Total 5.7 g/dL (6.4-8.2)
--- NOTE | 2021-07-28 07:11 | P.PN ---
Date of Service: 07/27/21 Subjective Patient was scheduled for a cholecystectomy. However, this was delayed because of concern by anesthesiology regarding cardiac functioning. However, patient has pacemaker set rate at 40. Patient tolerated surgery 2 weeks ago. We will repeat LFTs. Continue antibiotics. Physical Examination - Vital Signs Reviewed - Physical Exam General: In no apparent distress, Cooperative, Obese HEENT: Atraumatic, Normocephalic Respiratory: Clear to auscultation bilaterally, Normal air movement Cardiovascular: Regular rate/rhythm, Normal S1 S2, Other (bradycardic) Gastrointestinal: Soft and benign, Non-distended Musculoskeletal: No clubbing, No swelling, No contractures Neurological: Normal speech, Normal affect Assessment And Plan - Current Problems (Diagnosis) (1) Sepsis Current Visit: Yes Status: Acute (2) Acute cholecystitis Current Visit: Yes Status: Acute (3) History of DVT (deep vein thrombosis) Current Visit: No Status: Acute (4) History of diabetes mellitus, type II Current Visit: No Status: Acute (5) Status post total left knee replacement Current Visit: No Status: Acute (6) Bradycardia Current Visit: Yes Status: Acute Physician Review Additional Text: Assessment 1. Acute cholecystitis 2. CAD s/p pacemaker 3. VTE 4. CHF 5. Type II diabetes mellitus PLAN: -NPO for cholecystectomy. Surgery consulted by ER -I discussed her bradycardia with Anesthesia, and cardiology yesterday. -She has a AICD/PCM. Cardiac clearance requested before surgery -Continue zosyn and follow blood cx -Pacemaker interogation for bradycardia. -TTE ordered -Insulin sliding scale -DVT/GI ppx
[2021-07-28] MEDS: INSULIN -REGULAR HUMAN 50 UNIT/0.5 ML ML SQ SCH ×4 (08:53→20:31)
[2021-07-28] MEDS: PANTOPRAZOLE 40 MG INJ IVP SCH (08:54)
[2021-07-28] MEDS: MIDODRINE HCL 5 MG TABLET PO SCH ×3 (08:54→20:32)
--- NOTE | 2021-07-28 10:25 | P.PN ---
Date of Service: 07/28/21 Subjective Defibrillator interrogated. Rate increased to 60. Patient cleared for surgery in a.m. Physical Examination - Vital Signs Reviewed - Physical Exam General: In no apparent distress, Cooperative, Obese HEENT: Atraumatic, Normocephalic Respiratory: Clear to auscultation bilaterally, Normal air movement Cardiovascular: Regular rate/rhythm, Normal S1 S2, Other (bradycardic) Gastrointestinal: Soft and benign, Non-distended Musculoskeletal: No clubbing, No swelling, No contractures Neurological: Normal speech, Normal affect Assessment And Plan - Current Problems (Diagnosis) (1) Sepsis Current Visit: Yes Status: Acute (2) Acute cholecystitis Current Visit: Yes Status: Acute (3) History of DVT (deep vein thrombosis) Current Visit: No Status: Acute (4) History of diabetes mellitus, type II Current Visit: No Status: Acute (5) Status post total left knee replacement Current Visit: No Status: Acute (6) Bradycardia Current Visit: Yes Status: Acute Physician Review Additional Text: Assessment 1. Acute cholecystitis 2. CAD s/p pacemaker 3. VTE 4. CHF 5. Type II diabetes mellitus PLAN: -NPO for cholecystectomy. Surgery consulted by ER -I discussed her bradycardia with Anesthesia, and cardiology yesterday. -She has a AICD/PCM. Cardiac clearance requested before surgery -Continue zosyn and follow blood cx -Pacemaker interogation for bradycardia. -TTE ordered -Insulin sliding scale -DVT/GI ppx
--- NOTE | 2021-07-28 10:25 | P.PN ---
Date of Service: 07/28/21 Subjective Patient is refinisher. He is also in agreement that patient could proceed with surgery. The pacemaker is set at 40. He just recommends not giving a lot of volume to the patient because of volume overload. But he has seen the patient for many years and he feels patient is acceptable surgical risk to proceed for surgery for acute cholecystitis.
--- NOTE | 2021-07-28 10:35 | ECHO ---
HEIGHT: 5 ft 0 in WEIGHT: 174 lb 0 oz DATE OF STUDY: 07/27/[address]: Prince Marisabel Light MD 2-DIMENSIONAL: YES M.MODE: YES DOPPLER: YES COLOR FLOW: YES TDS: NO PORTABLE: NO DEFINITY: NO BUBBLE STUDY: NO DIAGNOSIS: CONGESTIVE HEART FAILURE CARDIAC HISTORY: CATHERIZATION: NO SURGERY: YES PROSTHETIC VALVEYES PACEMAKER: YES MEASUREMENTS (cm) DIASTOLIC (NORMALS) SYSTOLIC (NORMALS) IVSd 1.0 (0.6-1.2) LA Diam 3.9 (1.9-4.0) LVEF 52% LVIDd 5.1 (3.5-5.7) LVIDs 3.7 (2.0-3.5) %FS 27% LVPWd 1.0 (0.6-1.2) Ao Diam 2.7 (2.0-3.7) 2 DIMENSIONAL ASSESSMENT: RIGHT ATRIUM: NORMAL LEFT ATRIUM: NORMAL RIGHT VENTRICLE: PACEMAKER LEFT VENTRICLE: NORMAL TRICUSPID VALVE: NORMAL MITRAL VALVE: NORMAL PULMONIC VALVE: NORMAL AORTIC VALVE: NORMAL PROSTHETIC PERICARDIAL EFFUSION: NONE AORTIC ROOT: NORMAL LEFT VENTRICULAR WALL MOTION: NORMAL DOPPLER/COLOR FLOW: MILD TRICUSPID REGURGITATION. COMMENTS: NORMAL LEFT VENTRICULAR EJECTION FRACTION AND SIZE. NORMAL BIOPROSTHETIC AORTIC VALVE. PERMANENT PACEMAKER IN RIGHT VENTRICLE. TECHNOLOGIST: Dennys TRACEY
[2021-07-28] MEDS: ENOXAPARIN 40 MG/0.4 ML SQ SCH (17:00)
[2021-07-29] MEDS: D5 0.45 NS 1,000 ML IV SCH ×3 (00:33→17:40)
[2021-07-29] MEDS: PIPER TAZO 3.375 GM in NA CHLORIDE 0.9% 100 ML IV SCH ×3 (00:33→17:39)
[2021-07-29] MEDS: INSULIN -REGULAR HUMAN 50 UNIT/0.5 ML ML SQ SCH ×4 (07:30→23:07)
[2021-07-29] MEDS: PANTOPRAZOLE 40 MG INJ IVP SCH (08:57)
[2021-07-29] MEDS ORDERED: FENTANYL CITR 100 MCG/2 ML ONE (10:24)
[2021-07-29] MEDS ORDERED: ONDANSETRON 4 MG/2 ML VIAL ONE (10:25)
[2021-07-29] MEDS ORDERED: MIDAZOLAM HCL 2 MG/2 ML INJ ONE (10:25)
[2021-07-29] MEDS ORDERED: ROCURONIUM 50 MG/5 ML VIAL IV ONE ×2 (10:25→12:36)
[2021-07-29] MEDS ORDERED: ETOMIDATE 20 MG/10 ML VIAL IV ONE (10:28)
[2021-07-29] MEDS ORDERED: LIDOCAINE 1% MPF 2 ML AMPULE ONE (10:36)
[2021-07-29] MEDS ORDERED: NA CHLORIDE 0.9% 1,000 ML ONE (10:56)
[2021-07-29] MEDS ORDERED: NA CHLORIDE 0.9% 100 ML IV ONE (11:41)
--- NOTE | 2021-07-29 11:42 | P.PN ---
Date of Service: 07/29/21 S: Patient feels stronger today. O: Vital signs are stable, heart rate is stable. A: Patient had her pacemaker adjusted yesterday. Feels much better physically. Still having her right upper quadrant abdominal discomfort. P: Patient has been medically cleared for surgery now that her pacemaker has been readjusted. I will take her to the operating room for laparoscopic possible open cholecystectomy. The risks of this procedure have been discussed. The possibility of bleeding, infection, injury to bile ducts blood vessels and intestines were once again described. The possible need for an open and/or further surgeries and procedures was discussed. She understands and wants us to proceed.
[2021-07-29] MEDS ORDERED: Phenylephrine HCl 10 MG/ML 1 ML VIAL ONE (11:44)
[2021-07-29] MEDS ORDERED: dexAMETHasone 4 MG/ML VIAL ONE (12:05)
[2021-07-29] MEDS ORDERED: KETOROLAC 30 MG/ML INJ ONE (13:28)
[2021-07-29] MEDS ORDERED: GLYCOPYRROLATE 0.2 MG/ML SYR ONE (13:30)
[2021-07-29] MEDS ORDERED: NEOSTIGMINE 1 MG/ML -5 ML ONE (13:31)
--- NOTE | 2021-07-29 13:53 | P.OP ---
Preoperative diagnosis: Cholecystitis with cholelithiasis Postoperative diagnosis: The same Primary procedure: Laparoscopic cholecystectomy Secondary procedure: Cholangiogram Other procedure(s): Tap block Anesthesia: General Estimated blood loss: Less than 10 cc Specimen: 1 gallbladder Operative Technique: The patient brought the operating room and placed supine on the table. After induction of adequate general endotracheal anesthesia, the area of the abdomen was prepped with a DuraPrep solution, and she was draped in the usual aseptic manner A subumbilical incision was made. This was brought down through the skin and subcutaneous tissue. The Visiport was used to enter the peritoneal cavity and created pneumoperitoneum to approximately 12 mmHg. Under direct vision a 5 mm trocar was placed in the upper midline, and 2 other 5 mm trochars were placed on the right lateral side of the abdomen. At this point the procedure a tap block was done. This was done 1.25% Marcaine to allow for adequate analgesia during the postoperative period. Attention was turned towards right upper quadrant. We could see the omentum was adherent to an inflammatory process just on the inferior margin of the right lobe of the liver. The view of this omentum were able to dissected off a chronically inflamed gallbladder that showed a marked amount of edema in the adhesions between the omentum and the serosal surface of the gallbladder itself. These adhesions were both chronic with an acute component. They were gently dissected off of the gallbladder which was a laborious dissection. Electrocautery was used to ensure adequate hemostasis. At the same time we were also able to mobilize part of the gallbladder off of the liver itself. At the inferior edge of the liver on the right side we did encounter some brisk bleeding there was venous in nature. This was controlled with electrocautery. The dissection was now continued down inferiorly. This very thin-walled chronically and markedly distended gallbladder however tore at 1 point and we did have some loss of bile. The area was irrigated with a copious amount of a saline solution to try and contain its contamination of the peritoneal cavity. The gallbladder now was again grasper that we continue to dissect inferiorly. We identified the area of Alaniz's pouch. A gentle sweep allowed us to expose the cystic duct the cystic duct was again dilated at this point. A opening was made into the cystic duct well away from what looks like a dilated common bile duct. We obtained a cholangiogram which showed good flow of contrast into the duodenum. We were well away from the junction of the cystic duct with the common bile duct on our opening into the cystic duct. Pressure injection a llowed us to show the upper radicles which did not show any filling defects at that time. The cystic duct was now transected at the opening where we made our cholangiogram. We were able to grasp the stump with a grasper. A chromic suture ligature tie was then placed around this area. 2 otis were applied but I did not feel comfortable with her placement as a seem to be crossed. These were removed and we left a chromic tie in place. The gallbladder was now dissected from the liver bed. It was brought out through the umbilical trocar site. With the patient still in marked reverse Trendelenburg and rolled to the left side we were able to visualize the right upper quadrant. It was irrigated with a copious amount of a saline solution. The effluent was aspirated from the peritoneal cavity. I felt more comfortable placing a 10 mm drain along the inferior border of the liver and down the right paracolic gutter. This was brought out through the lateralmost 5 mm trocar site. The drain was then sutured in place with a nylon. At this point attention was turned back towards the umbilical trocar site. This area was approximated using the Endo Close and an absorbable suture. The patient was now returned to the neutral position on the OR table. Once again suction was applied to the drain on the rehab placed. We aspirated until the effluent was almost clear. At this point the pneumoperitoneum was collapsed, the trochars withdrawn. And otis applied to the skin. At the end of the procedure she was in a stable condition was sent to the recovery room. Needle sponge instrument count were correct. Complications: None Drain(s): CRISTOBAL drain Transferred to: Recovery Room Condition: Good
[2021-07-29] MEDS ORDERED: ALBUTEROL 2.5 MG/3 ML NEB SOL ONE (13:57)
[2021-07-29] MEDS: FENTANYL CITR 100 MCG/2 ML ONE ×2 (14:23→14:24)
--- NOTE | 2021-07-29 14:24 | RAD REPORT ---
EXAM DESCRIPTION: RAD - Cholangiogram Oper-Xray Or - 07/29/2021 2:13 pm FINDINGS: There were 9 portable C-arm cine loop acquisitions obtained during a fluoroscopic assisted intraoperative cholangiogram. No suspicious or unexpected findings. Fluoro time was 0.7 minutes. Cumulative dose was 45.9 mGy
[2021-07-29] MEDS: ENOXAPARIN 40 MG/0.4 ML SQ SCH (17:00)
[2021-07-29] MEDS: MORPHINE 2 MG/ML SYR IV PRN (18:15)
--- NOTE | 2021-07-29 19:13 | RAD REPORT ---
EXAM DESCRIPTION: RAD - Chest Single View - 07/29/2021 6:32 pm CLINICAL HISTORY: pneumonia COMPARISON: Portable 07/25/2021 TECHNIQUE: AP portable chest image was obtained 07/29/2021 6:32 pm . FINDINGS: Interstitial markings are prominent throughout both lung chase more so in each base. Card iomegaly is present. Upper lobe vasculature is mildly prominent. Sternotomy wires are in place. Defib rillator is still in place. No new tube or line seen. Cardiac leads overlie the chest. Chest findings most consistent with CHF/volume overload. No dense consolidations seen though pneumoni a could be masked by the edema findings. No pneumothorax or large pleural effusion. No acute bony abn ormality seen. No acute aortic findings suspected. IMPRESSION: CHF/volume overload findings are present. Pneumonia could be masked by these edema findings.
[2021-07-30] MEDS: PIPER TAZO 3.375 GM in NA CHLORIDE 0.9% 100 ML IV SCH ×3 (00:31→16:39)
[2021-07-30] MEDS: D5 0.45 NS 1,000 ML IV SCH ×2 (02:57→07:00)
[2021-07-30] MEDS: PANTOPRAZOLE 40 MG INJ IVP SCH (08:07)
[2021-07-30] MEDS: INSULIN -REGULAR HUMAN 50 UNIT/0.5 ML ML SQ SCH ×4 (08:09→21:00)
--- NOTE | 2021-07-30 08:51 | P.PN ---
Date of Service: 07/29/21 Subjective Patient status post laparoscopic cholecystectomy. Continue with strict blood pressure control and blood sugar control. Patient was short of breath and placed on BiPAP for a little while. Will watch in ICU per anesthesiology recommendation. Physical Examination - Vital Signs Reviewed - Physical Exam General: In no apparent distress, Cooperative, Obese HEENT: Atraumatic, Normocephalic Respiratory: Diminished Cardiovascular: Regular rate/rhythm, Normal S1 S2, Other (bradycardic) Gastrointestinal: Soft and benign, Non-distended; appropriately tender Musculoskeletal: No clubbing, No swelling, No contractures Neurological: Normal speech, Normal affect Assessment And Plan - Current Problems (Diagnosis) (1) Sepsis Current Visit: Yes Status: Acute (2) Acute cholecystitis Current Visit: Yes Status: Acute (3) History of DVT (deep vein thrombosis) Current Visit: No Status: Acute (4) History of diabetes mellitus, type II Current Visit: No Status: Acute (5) Status post total left knee replacement Current Visit: No Status: Acute (6) Bradycardia Current Visit: Yes Status: Acute Physician Review Additional Text: Assessment 1. Acute cholecystitis 2. CAD s/p pacemaker 3. VTE 4. CHF 5. Type II diabetes mellitus PLAN: -NPO for cholecystectomy. Surgery consulted by ER -I discussed her bradycardia with Anesthesia, and cardiology yesterday. -She has a AICD/PCM. Cardiac clearance requested before surgery -Continue zosyn and follow blood cx -Pacemaker interogation for bradycardia. -TTE ordered -Insulin sliding scale -DVT/GI ppx
[2021-07-30 11:02] LABS: Hematocrit 28.7 % (36.0-45.0); Lymphocytes % 8.1 % (15.3-44.8); MPV 9.6 fL (7.6-11.3); RBC Red Blood Cell Count 3.05 M/uL (3.86-4.86)
[2021-07-30 11:20] LABS: Albumin 2.7 g/dL (3.4-5.0); Bilirubin Total 1.1 mg/dL (0.2-1.0); Potassium 3.8 mmol/L (3.5-5.1); Protein, Total 5.9 g/dL (6.4-8.2)
[2021-07-30] MEDS: HYDROCODONE/APAP 7.5/325 MG TAB PO PRN ×2 (11:33→23:17)
--- NOTE | 2021-07-30 11:47 | PN ---
Date of Progress Note: 07/27/[address] Light on 07/25/2021. She was seen by Dr. Hills for cardiac clearance prior to cho lecystectomy. I am seeing her on 07/27/2021. She has diabetes, CABG, history of AICD and hypertensi on, normally follows up by Dr. Judge. Came in with acute cholecystitis. There is plan for surgery. Dr. Hills had cleared her, but there was a concern because her heart rate is 40. Apparently recent ly had knee surgery without any problems. She has had a negative cardiac workup in the near past. H as no cardiac symptoms whatsoever. She has no allergies. She takes Entresto, metformin, Aldactone, and Coreg. She has a fairly unremarkable physical examination and her labs are normal except for glu cose of 279. I decided to discontinue her Coreg because of bradycardia and we need to have a [employer] e pacemaker telephone sales representative come check her AICD. We will discuss the case further with Anesthesiology and Dr. Lira. I do not think she has a pacemaker, I think she only has an AICD. These are yves lly set up at a rate of 40. She has no symptoms, but we may have to increase her rate on the AICD wh en St. Greg come to see her. Keep her off carvedilol. Once her heart rate improves, then she can hav e her surgery. We will be available for questions. DEVIN/KESHIA Voice ID: [id number] Report ID: [id number]
--- NOTE | 2021-07-30 12:37 | P.PN ---
Date of Service: 07/30/21 S: Patient is awake and alert tonight. States she just feels extremely tired. Pain is somewhat better. O: Incisions clean, had about 80 cc of remaining irrigant out through the CRISTOBAL drain. This should decrease over the day today. A: Patient is surgically stable P: Patient being transferred out to the floor. We will see if we can get her mobilized, and started on PT today. Anticipate discharge perhaps in the morning when she is medically stable
[2021-07-30] MEDS: ENOXAPARIN 40 MG/0.4 ML SQ SCH (16:38)
[2021-07-30] MEDS ORDERED: ENOXAPARIN 80 MG/0.8 ML SQ ONE (21:00)
[2021-07-30] MEDS ORDERED: ENOXAPARIN 30 MG/0.3 ML SQ ONE (21:58)
[2021-07-31] MEDS: PIPER TAZO 3.375 GM in NA CHLORIDE 0.9% 100 ML IV SCH ×3 (00:43→16:38)
[2021-07-31] MEDS: INSULIN -REGULAR HUMAN 50 UNIT/0.5 ML ML SQ SCH ×4 (07:30→22:49)
[2021-07-31] MEDS ORDERED: ALBUMIN HUMAN 25% 50 ML IV ONE (10:07)
[2021-07-31] MEDS ORDERED: FUROSEMIDE 20 MG/ 2ML VIAL IV ONE (10:07)
[2021-07-31] MEDS: ENOXAPARIN 80 MG/0.8 ML SQ SCH ×2 (10:33→22:48)
[2021-07-31] MEDS: PANTOPRAZOLE 40 MG INJ IVP SCH (10:34)
[2021-07-31] MEDS: HYDROCODONE/APAP 7.5/325 MG TAB PO PRN (12:18)
[2021-07-31] MEDS ORDERED: ONDANSETRON 4 MG/2 ML VIAL IV PRN (14:02)
--- NOTE | 2021-07-31 18:19 | P.PN ---
Date of Service: 07/30/21 Subjective Patient stable. Patient without new complaints. CRISTOBAL drain in place. Transfer to general medical floor. Physical Examination - Vital Signs Reviewed - Physical Exam General: In no apparent distress, Cooperative, Obese HEENT: Atraumatic, Normocephalic Respiratory: Diminished Cardiovascular: Regular rate/rhythm, Normal S1 S2, Other (bradycardic) Gastrointestinal: Soft and benign, Non-distended; appropriately tender Musculoskeletal: No clubbing, No swelling, No contractures Neurological: Normal speech, Normal affect Assessment And Plan - Current Problems (Diagnosis) (1) Sepsis Current Visit: Yes Status: Acute (2) Acute cholecystitis Current Visit: Yes Status: Acute (3) History of DVT (deep vein thrombosis) Current Visit: No Status: Acute (4) History of diabetes mellitus, type II Current Visit: No Status: Acute (5) Status post total left knee replacement Current Visit: No Status: Acute (6) Bradycardia Current Visit: Yes Status: Acute Physician Review Additional Text: Assessment 1. Acute cholecystitis 2. CAD s/p pacemaker 3. VTE 4. CHF 5. Type II diabetes mellitus PLAN: -Diet as tolerated -Doing well perioperatively -Continue zosyn -Insulin sliding scale -DVT/GI ppx
--- NOTE | 2021-07-31 18:20 | P.PN ---
Date of Service: 07/31/21 Subjective Lots of fluid from the CRISTOBAL drain; removed knee dressing Physical Examination - Vital Signs Reviewed - Physical Exam General: In no apparent distress, Cooperative, Obese HEENT: Atraumatic, Normocephalic Respiratory: Diminished Cardiovascular: Regular rate/rhythm, Normal S1 S2, Other (bradycardic) Gastrointestinal: Soft and benign, Non-distended; appropriately tender Musculoskeletal: No clubbing, No swelling, No contractures Neurological: Normal speech, Normal affect Assessment And Plan - Current Problems (Diagnosis) (1) Sepsis Current Visit: Yes Status: Acute (2) Acute cholecystitis Current Visit: Yes Status: Acute (3) History of DVT (deep vein thrombosis) Current Visit: No Status: Acute (4) History of diabetes mellitus, type II Current Visit: No Status: Acute (5) Status post total left knee replacement Current Visit: No Status: Acute (6) Bradycardia Current Visit: Yes Status: Acute Physician Review Additional Text: Assessment 1. Acute cholecystitis 2. CAD s/p pacemaker 3. VTE 4. CHF 5. Type II diabetes mellitus PLAN: -Diet as tolerated -Doing well perioperatively -Continue zosyn -Insulin sliding scale -DVT/GI ppx
[2021-07-31] MEDS: carvediloL 3.125 MG TAB PO SCH (22:47)
[2021-07-31] MEDS: SACUBITRIL/VALSARTAN 24/26 MG TAB PO SCH (22:47)
[2021-08-01] MEDS: PIPER TAZO 3.375 GM in NA CHLORIDE 0.9% 100 ML IV SCH ×2 (01:23→09:19)
[2021-08-01 07:11] LABS: Absolute Lymphocytes (CBC) 1.9 K/uL (0.7-4.9); Hematocrit 27.5 % (36.0-45.0); Lymphocytes % 20.1 % (15.3-44.8); MPV 9.4 fL (7.6-11.3); RBC Red Blood Cell Count 2.94 M/uL (3.86-4.86)
[2021-08-01] MEDS: INSULIN -REGULAR HUMAN 50 UNIT/0.5 ML ML SQ SCH ×2 (07:30→11:30)
[2021-08-01 07:35] LABS: Albumin 2.7 g/dL (3.4-5.0); Bilirubin Total 1.2 mg/dL (0.2-1.0); Magnesium 1.9 mg/dL (1.8-2.4); Phosphorus 2.4 mg/dL (2.5-4.9); Potassium 3.3 mmol/L (3.5-5.1)
[2021-08-01] MEDS ORDERED: HYDROCODONE/APAP 7.5/325 MG TAB PO PRN (08:26)
[2021-08-01 08:39] VITALS: O2SAT 97
[2021-08-01] MEDS ORDERED: ALBUMIN HUMAN 25% 50 ML IV ONE (08:43)
[2021-08-01] MEDS ORDERED: FUROSEMIDE 20 MG/ 2ML VIAL IV ONE (08:43)
[2021-08-01] MEDS ORDERED: SPIRONOLACTONE 25 MG TABLET PO SCH (09:00)
[2021-08-01] MEDS: SACUBITRIL/VALSARTAN 24/26 MG TAB PO SCH (09:00)
[2021-08-01] MEDS: ENOXAPARIN 80 MG/0.8 ML SQ SCH (09:18)
[2021-08-01] MEDS: PANTOPRAZOLE 40 MG INJ IVP SCH (09:19)
[2021-08-01] MEDS: carvediloL 3.125 MG TAB PO SCH (09:23)
[2021-08-01] MEDS ORDERED: POTASS/SODIUM PHOSPHATE 1 PKT POWD.PACK PO ONE (11:51)
[2021-08-01 15:26] VITALS: BP 107/50; TEMP 97.6
== END 2021-08-01 15:59 | disposition home or self-care (01) | DRG 854 ==
LOC: ER 13:32 → ERHOLD 17:36 → 4TH 20:30 → 3RD-ICU 07-29 17:22 → 2ND 07-30 13:30
PROVIDERS: ADMIT Internal Medicine; ATTEND Hospitalist
PROC: BF121ZZ Fluoroscopy of Gallbladder using Low Osmolar Contrast (ICD-10-PCS; 2021-07-29)
PROC: 5A09357 Assistance with Respiratory Ventilation, Less than 24 Consecutive Hours, Continuous Positive Airway Pressure (ICD-10-PCS; 2021-07-29)
PROC: 0FT44ZZ Resection of Gallbladder, Percutaneous Endoscopic Approach (ICD-10-PCS; principal; 2021-07-29 12:00)
DX: A41.9 Sepsis, unspecified organism (principal); K80.12 Calculus of gallbladder with acute and chronic cholecystitis without obstruction; I82.90 Acute embolism and thrombosis of unspecified vein; K21.9 Gastro-esophageal reflux disease without esophagitis; I11.0 Hypertensive heart disease with heart failure; I50.9 Heart failure, unspecified; I25.10 Atherosclerotic heart disease of native coronary artery without angina pectoris; E11.9 Type 2 diabetes mellitus without complications; I25.2 Old myocardial infarction; R00.1 Bradycardia, unspecified; Z79.01 Long term (current) use of anticoagulants; Z79.84 Long term (current) use of oral hypoglycemic drugs; Z79.899 Other long term (current) drug therapy; Z95.810 Presence of automatic (implantable) cardiac defibrillator; Z87.891 Personal history of nicotine dependence; Z98.51 Tubal ligation status; Z86.718 Personal history of other venous thrombosis and embolism; Z96.652 Presence of left artificial knee joint; Z20.822 Contact with and (suspected) exposure to COVID-19
CPT/HCPCS: 36415; 71045; 74177; 74300; 76705; 80053; 81003; 82947; 83036; 83605; 83690; 83735; 83880; 84100; 84145; 84484; 85025; 85610; 85730; 88304; 93005; 93306; 94010; 94660; 96374; 96375; 97116; 97161; 97530; 99285; C9113; J1100; J1650; J1940; J2250; J2270; J2370; J2405; J2543; J2704; J2710; J3010; J7030; J7799; P9047; Q9967; U0003